=== PATIENT | female | born 1970 | race Two or more races ===

== ENCOUNTER 2020-01-29 09:44 | Emergency (ER) | payer OTHER, SELFPAY ==
[~2020-01-29] VITALS: Ht 160 cm; Wt 72.6 kg
[2020-01-29 09:48] VITALS: Ht 160 cm; Wt 72.6 kg
[2020-01-29 10:55] LABS: UA SPECIFIC GRAVITY 1.025 (1.005-1.035); microscopic required? YES; urine erythrocyte 2+ (NEGATIVE)
[2020-01-29 11:02] LABS: CALCIUM 9.1 mg/dL (8.5-10.1); CARBON DIOXIDE 24.8 mmol/L (21-32); CHLORIDE SERUM 97 mmol/L (98-107); CREATININE SERUM 0.9 mg/dL (0.6-1.0); GFR1 > 60 mL/min; GLUCOSE SERUM 392 mg/dL (74-106); SODIUM SERUM 132 mmol/L (136-145)
[2020-01-29 11:07] LABS: ALKALINE PHOSPHATASE 120 U/L (46-116); ALT/SGPT 22 U/L (14-59); AST/SGOT 11 U/L (15-37); BILIRUBIN TOTAL 0.54 mg/dL (0.20-1.00); TOTAL PROTEIN, SERUM 7.5 g/dL (6.4-8.2)
[2020-01-29 11:09] LABS: ALBUMIN 3.3 g/dL (3.4-5.0)
[2020-01-29 11:29] LABS: BASOPHIL % 0.4 % (0-2); PLATELET COUNT 209 x10^3mcL (130-400); RED CELL DISTRIBUTION WIDTH 14.1 % (11.5-14.5)
[2020-01-29 14:52] VITALS: BP 116/76
== END 2020-01-29 15:00 | disposition home or self-care (01) ==
LOC: ED 09:44
PROVIDERS: Emergency Medicine
DX: N39.0 Urinary tract infection, site not specified (principal); E11.65 Type 2 diabetes mellitus with hyperglycemia
CPT/HCPCS: 82962; J0696; J1815; J7030; Q0092

== ENCOUNTER 2020-02-11 23:24 | Emergency (ER) | payer OTHER ==
[~2020-02-11] VITALS: Ht 142.2 cm; Wt 72.6 kg
[2020-02-11 23:47] VITALS: Ht 142.2 cm; Wt 72.6 kg
[2020-02-12 01:36] LABS: UA SPECIFIC GRAVITY 1.015 (1.005-1.035); microscopic required? YES; urine erythrocyte 3+ (NEGATIVE)
[2020-02-12 01:39] LABS: BASOPHIL % 1.3 % (0-2); RED CELL DISTRIBUTION WIDTH 12.6 % (11.5-14.5)
[2020-02-12 01:42] LABS: PLATELET COUNT 424 x10^3mcL (130-400)
[2020-02-12 01:53] LABS: CALCIUM 9.6 mg/dL (8.5-10.1); CREATININE SERUM 1.2 mg/dL (0.6-1.0); POTASSIUM SERUM 3.9 mmol/L (3.5-5.1)
[2020-02-12 01:57] LABS: ALBUMIN 2.9 g/dL (3.4-5.0); BILIRUBIN TOTAL 0.21 mg/dL (0.20-1.00)
[2020-02-12 03:10] VITALS: BP 119/50
== END 2020-02-12 03:10 | disposition home or self-care (01) ==
LOC: ED 23:24
PROVIDERS: Emergency Medicine
DX: N39.0 Urinary tract infection, site not specified (principal); E11.65 Type 2 diabetes mellitus with hyperglycemia; R50.9 Fever, unspecified; I10 Essential (primary) hypertension
CPT/HCPCS: 82962; J0696; J1815